=== PATIENT | female | born 1990 | race African-American/Black ===

== ENCOUNTER 2018-11-19 17:45 | Emergency (ER) | payer OTHER ==
[~2018-11-19] VITALS: Ht 144.8 cm; Wt 58.1 kg
--- NOTE | 2018-11-19 18:38 | PHYS DOC ---
Past Medical History Additional Past Medical Histor: ADHD, ANXIETY Past Surgical History: Alcohol Use: None Drug Use: None Adult General Chief Complaint Chief Complaint: CHEST PAIN HPI HPI Patient is a 28 year old -[place] female with history of ADD and schizophrenia who presents with intermittent chest wall pain 24 hours. It is located in the left side described as sharp and rated as mild. It is not associated with nausea vomiting, sweats, fever or cough. Patient denies leg pain swelling. No history of DVT or PE. Patient is not currently on hormone therapy. Previous tubal ligation. Patient started on IM Haldol injections 2 days ago. Denies rash, itching, or shortness of breath. No fevers, chills, sweats or other infectious symptoms. No other acute symptoms or complaints. Additional history obtained from the patient's grandmother.[] Review of Systems Review of Systems Review of symptoms as per history of present illness All other systems were reviewed and found to be within normal limits, except as documented in this note. Allergies Allergies Allergies Coded Allergies Type Severity Reaction Last Updated Verified aspirin Allergy Unknown 11/19/18 Yes Physical Exam Physical Exam Constitutional: Well developed, well nourished, no acute distress, non-toxic appearance. [] HENT: Normocephalic, atraumatic, bilateral external ears normal, oropharynx moist, nose normal. [] Eyes: PERRLA, EOMI, conjunctiva normal, no discharge. [] Neck: Normal range of motion, no tenderness, supple, no stridor. [] Cardiovascular:Heart rate regular rhythm, no murmur [] Lungs & Thorax: Bilateral breath sounds clear to auscultation [] Abdomen: Bowel sounds normal, soft, no tenderness. [] Skin: Warm, dry, no erythema, no rash. [] Back: No tenderness. [] Extremities: No tenderness, negatives Homans sign.. [] Neurologic: Alert and oriented X 3, normal motor function, normal sensory function, no focal deficits noted. [] Psychologic: Affect normal, judgement normal, mood normal. [] Current Patient Data Vital Signs Vital Signs Date Time Temp Pulse Resp B/P (MAP) Pulse Ox O2 Delivery O2 Flow Rate FiO2 11/19/18 18:06 99.7 105 18 126/82 (97) 99 Room Air 99.7 Lab Values Laboratory Tests Test 11/19/18 18:20 White Blood Count 4.8 x10^3/uL (4.0-11.0) Red Blood Count 5.08 x10^6/uL (3.50-5.40) Hemoglobin 15.1 g/dL (12.0-15.5) Hematocrit 45.2 % (36.0-47.0) Mean Corpuscular Volume 89 fL (79-100) Mean Corpuscular Hemoglobin 30 pg (25-35) Mean Corpuscular Hemoglobin Concent 33 g/dL (31-37) Red Cell Distribution Width 13.9 % (11.5-14.5) Platelet Count 242 x10^3/uL (140-400) Neutrophils (%) (Auto) 64 % (31-73) Lymphocytes (%) (Auto) 28 % (24-48) Monocytes (%) (Auto) 7 % (0-9) Eosinophils (%) (Auto) 0 % (0-3) Basophils (%) (Auto) 1 % (0-3) Neutrophils # (Auto) 3.1 x10^3uL (1.8-7.7) Lymphocytes # (Auto) 1.4 x10^3/uL (1.0-4.8) Monocytes # (Auto) 0.3 x10^3/uL (0.0-1.1) Eosinophils # (Auto) 0.0 x10^3/uL (0.0-0.7) Basophils # (Auto) 0.0 x10^3/uL (0.0-0.2) D-Dimer (Maggie) 0.33 ug/mlFEU (0.00-0.50) Sodium Level 140 mmol/L (136-145) Potassium Level 4.1 mmol/L (3.5-5.1) Chloride Level 100 mmol/L (98-107) Carbon Dioxide Level 27 mmol/L (21-32) Anion Gap 13 (6-14) Blood Urea Nitrogen 13 mg/dL (7-20) Creatinine 0.6 mg/dL (0.6-1.0) Estimated GFR (Cockcroft-Gault) 146.2 Glucose Level 149 mg/dL (70-99) H Calcium Level 10.3 mg/dL (8.5-10.1) H Laboratory Tests 11/19/18 18:20 Laboratory Tests 11/19/18 18:20 EKG EKG [EKG: Normal sinus rhythm, no acute ST-T wave changes on ED review] Radiology/Procedures Radiology/Procedures [Chest x-ray: No acute cardiopulmonary disease per radiology report.] Course & Med Decision Making Course & Med Decision Making Pertinent Labs and Imaging studies reviewed. (See chart for details) [Producible chest wall pain with normal vital signs, EKG, lab, imaging studies unremarkable. Symptoms most consistent with pleurisy. Recommend supportive care with PCP follow-up. Return precautions reviewed. Patient and family members verbalizes understanding agreement with discharge instructions prior to departure.] Dragon Disclaimer Dragon Disclaimer This electronic medical record was generated, in whole or in part, using a voice recognition dictation system. Departure Departure Impression: Primary Impression: Chest wall pain Additional Impression: Pleurisy Disposition: HOME, SELF-CARE Condition: GOOD Patient Instructions: Chest Wall Pain, [id number] Additional Instructions: You were evaluated in the emergency department for chest wall pain. EKG lab and imaging studies were performed and are nondiagnostic. Your symptoms are most consistent with pleurisy, inflammation of the lining lungs. Please take his 100 mg of ibuprofen 3 times daily and Tylenol as needed for additional relief. Follow-up with your PCP early next week for reevaluation if symptoms persist. Return to the ED if new or worsening symptoms. Scripts Ibuprofen (Ibuprofen) 600 Mg Tablet 600 MG PO Q8HRS, #30 TAB Prov: SAL WILCOX DO 11/19/18 Problem Qualifiers SAL WILCOX DO Nov 19, 2018 18:38
[2018-11-19 19:12] LABS: CALCIUM 10.3 mg/dL (8.5-10.1); CREATININE 0.6 mg/dL (0.6-1.0); GFR 146.2; POTASSIUM 4.1 mmol/L (3.5-5.1)
[2018-11-19 19:18] LABS: BASO % 1 % (0-3); EOS % 0 % (0-3); HEMATOCRIT 45.2 % (36.0-47.0); HEMOGLOBIN 15.1 g/dL (12.0-15.5); LYMPH # 1.4 x10^3/uL (1.0-4.8); LYMPH % 28 % (24-48); MEAN CORPUSCULAR HEMOGLOBIN 30 pg (25-35); MEAN CORPUSCULAR HGB CONC 33 g/dL (31-37); MEAN CORPUSCULAR VOLUME 89 fL (79-100); MONO # 0.3 x10^3/uL (0.0-1.1); MONO % 7 % (0-9); NEUT # 3.1 x10^3uL (1.8-7.7); NEUT % 64 % (31-73); PLATELET COUNT 242 x10^3/uL (140-400); RED BLOOD COUNT 5.08 x10^6/uL (3.50-5.40); RED CELL DISTRIBUTION WIDTH 13.9 % (11.5-14.5); WHITE BLOOD COUNT 4.8 x10^3/uL (4.0-11.0)
--- NOTE | 2018-11-19 19:24 | RAD ---
PROCEDURE: CHEST AP ONLY CLINICAL INDICATION: Chest pain COMPARISON: None FINDINGS: No pneumothorax identified. Cardiac and mediastinal contours unremarkable. No pulmonary consolidation or acute airspace disease. No acute osseous abnormalities identified. IMPRESSION: No pulmonary consolidation or acute airspace disease. Electronically signed by: Germain Andersen DO (11/19/2018 7:21 PM) [facility]
[2018-11-19] MEDS ORDERED: IBUP-985 PO (19:34)
[2018-11-19 19:52] VITALS: BP 113/76
--- NOTE | 2018-11-20 11:50 | EKG ---
[facility] [address] [place] [address] Test Date: 2018-11-19 Test Time: 17:58:41 Pat Name: KATERYNA MAYNARD Department: Room: Gender: F [employer]: : 1990 Requested By: SAL WILCOX Order Number: [id number] Reading MD: Esau Arias Measurements Intervals [place] Rate: 100 P: 63 MN: 150 QRS: -26 QRSD: 80 T: 12 QT: 348 QTc: 452 Interpretive Statements SINUS RHYTHM LEFT ATRIAL ABNORMALITY LEFTWARD AXIS INCOMPLETE RIGHT BUNDLE BRANCH BLOCK ABNORMAL ECG RI6.01 No previous ECG available for comparison Electronically Signed On 11-29-2018 10:37:56 [employer]OLER DELIVERER by Esau Arias
== END 2018-11-19 20:01 | disposition home or self-care (01) ==
LOC: ER 17:45
DX: R09.1 Pleurisy (principal); R07.89 Other chest pain; F41.9 Anxiety disorder, unspecified; F90.9 Attention-deficit hyperactivity disorder, unspecified type; F20.9 Schizophrenia, unspecified; Z88.6 Allergy status to analgesic agent
CPT/HCPCS: 36415; 71045; 80048; 85025; 85379; 93005; 99284

== ENCOUNTER 2019-10-02 19:41 | Emergency (ER) | payer OTHER ==
[~2019-10-02] VITALS: Ht 157.5 cm; Wt 58.1 kg
[~2019-10-02 19:41] MED LIST: IBUP-985 PO
[2019-10-02 20:02] LABS: BILIRUBIN,URINE NEGATIVE (NEG); CLARITY,URINE CLEAR; COLOR,URINE YELLOW; NITRITE,URINE NEGATIVE (NEG); PH,URINE 5.5; PROTEIN,URINE NEGATIVE (NEG-TRACE); UROBILINOGEN,URINE 0.2 mg/dL (0.2 mg/dL)
[2019-10-02 20:06] LABS: U PREG PATIENT NEGATIVE (NEG)
[2019-10-02 20:09] LABS: SQUAMOUS EPITHELIAL CELL,UR MOD /LPF
[2019-10-02 20:10] LABS: BACTERIA,URINE FEW /HPF (0-FEW); RBC,URINE 0 /HPF (0-2)
[2019-10-02] MEDS ORDERED: ONDANSETRON PF 4 MG/2 ML VIAL. IV ONE (20:45)
[2019-10-02] MEDS ORDERED: IV NORMAL SALINE 1000ML BAG 1,000 ML IV ONE (20:45)
--- NOTE | 2019-10-02 21:33 | RAD ---
Examination: Right Lower Extremity Venous Doppler Ultrasound History: Right leg swelling Comparison: None Procedure: Bal scale, color flow 2D and spectal waveform analysis images are obtained with and without compression in the area of the common femoral vein, superficial femoral vein - femoral vein junction, main femoral vein (superficial femoral vein) and popliteal vein. Veins of the proximal calf are also imaged. Findings: There is normal duplex flow, color flow and compressibility of all visualized vein segments. No evidence of deep venous thrombus is present. Impression: No evidence of DVT in the right lower extremity venous system. Electronically signed by: Trav Mcgraw MD (10/02/2019 9:30 PM) [facility]
[2019-10-02 21:36] LABS: BASO % 1 % (0-3); EOS % 1 % (0-3); HEMATOCRIT 45.5 % (36.0-47.0); HEMOGLOBIN 15.2 g/dL (12.0-15.5); LYMPH # 1.5 x10^3/uL (1.0-4.8); LYMPH % 26 % (24-48); MEAN CORPUSCULAR HEMOGLOBIN 29 pg (25-35); MEAN CORPUSCULAR HGB CONC 33 g/dL (31-37); MEAN CORPUSCULAR VOLUME 87 fL (79-100); MONO # 0.3 x10^3/uL (0.0-1.1); MONO % 6 % (0-9); NEUT # 3.9 x10^3/uL (1.8-7.7); NEUT % 67 % (31-73); PLATELET COUNT 220 x10^3/uL (140-400); RED BLOOD COUNT 5.22 x10^6/uL (3.50-5.40); RED CELL DISTRIBUTION WIDTH 13.9 % (11.5-14.5); WHITE BLOOD COUNT 5.7 x10^3/uL (4.0-11.0)
[2019-10-02 21:44] LABS: CALCIUM 9.7 mg/dL (8.5-10.1); CREATININE 0.7 mg/dL (0.6-1.0); GFR 121.5; POTASSIUM 4.6 mmol/L (3.5-5.1)
[2019-10-02 21:50] LABS: ALBUMIN 4.4 g/dL (3.4-5.0); ALBUMIN/GLOBULIN RATIO 1.1 (1.0-1.7); TOTAL BILIRUBIN 0.8 mg/dL (0.2-1.0); TOTAL PROTEIN 8.3 g/dL (6.4-8.2)
--- NOTE | 2019-10-02 22:12 | PHYS DOC ---
Past Medical History Past Medical History: Other Additional Past Medical Histor: ADHD, ANXIETY (LOGAN GILLIAM APRN) Past Surgical History: (LOGAN GILLIAM APRN) Alcohol Use: None Drug Use: None (LOGAN GILLIAM APRN) Attending Signature I have participated in the care of this patient and I have reviewed and agree wi th all pertinent clinical information above including history, exam, and recommendations. (ANDERS MONTALVO MD) Adult General Chief Complaint Chief Complaint: NAUSEA/VOMITING/DIARRHA HPI HPI Patient is a 29 year old female who presents to the ED today to be evaluated with concerns for diabetes. Patient reports she was seen at [facility] a couple days ago and was diagnosed with diabetes type 2 with glucose of 200. She reports she has no glucometer and is worried her glucose could be high. She is also re porting swelling to the right lower extremity and is requesting a venous Doppler of the right lower extremity to rule out any DVT. She reports she is a smoker (LOGAN GILLIAM APRN) Review of Systems Review of Systems Constitutional: Denies fever or chills [] Eyes: Denies change in visual acuity, redness, or eye pain [] HENT: Denies nasal congestion or sore throat [] Respiratory: Denies cough or shortness of breath [] Cardiovascular: No additional information not addressed in HPI [] GI: Denies abdominal pain, nausea, vomiting, bloody stools or diarrhea [] : Denies dysuria or hematuria [] Musculoskeletal: Reports right lower extremity swelling Integument: Denies rash or skin lesions [] Neurologic: Denies headache, focal weakness or sensory changes [] Endocrine-concern for DM All other systems were reviewed and found to be within normal limits, except as documented in this note. (LOGAN GILLIAM APRN) Current Medications Current Medications Current Medications Medications (Trade) Dose Ordered Sig/[place] Start Time Stop Time Status Last Admin Dose Admin Ondansetron HCl (Zofran) 4 mg 1X ONCE 10/02/19 20:45 10/02/19 20:46 DC 10/02/19 21:34 4 MG Sodium Chloride 1,000 ml @ 1,000 mls/hr 1X ONCE 10/02/19 20:45 10/02/19 21:44 DC 10/02/19 20:45 1,000 MLS/HR (ANDERS MONTALVO MD) Allergies Allergies Allergies Coded Allergies Type Severity Reaction Last Updated Verified aspirin Allergy Intermediate 10/02/19 Yes (ANDERS MONTALVO MD) Physical Exam Physical Exam Constitutional: Well developed, well nourished, no acute distress, non-toxic appearance. [] HENT: Normocephalic, atraumatic, bilateral external ears normal, oropharynx moist, no oral exudates, nose normal. [] Eyes: PERRLA, EOMI, conjunctiva normal, no discharge. [] Neck: Normal range of motion, no tenderness, supple, no stridor. [] Cardiovascular:Heart rate regular rhythm, no murmur [] Lungs & Thorax: Bilateral breath sounds clear to auscultation [] Abdomen: Bowel sounds normal, soft, no tenderness, no masses, no pulsatile masses. [] Skin: Warm, dry, no erythema, no rash. [] Back: No tenderness, no CVA tenderness. [] Extremities: No tenderness, no cyanosis, no clubbing, ROM intact, no edema. Negative Homans sign to bilateral lower extremities Neurologic: Alert and oriented X 3, normal motor function, normal sensory function, no focal deficits noted. [] Psychologic: Appears developmentally delayed (MUTUNGA,LOGAN ELEMENTARY SECRETARY) Current Patient Data Vital Signs Vital Signs Date Time Temp Pulse Resp B/P (MAP) Pulse Ox O2 Delivery O2 Flow Rate FiO2 10/02/19 22:26 93 113/71 (85) 10/02/19 20:25 98.8 16 98 Room Air 98.8 (ANDERS MONTALVO MD) Lab Values Laboratory Tests Test 10/02/19 19:45 10/02/19 20:30 10/02/19 21:20 Urine Collection Type Unknown Urine Color Yellow Urine Clarity Clear Urine pH 5.5 Urine Specific [place] 1.025 Urine Protein Negative mg/dL (NEG-TRACE) Urine Glucose (UA) Negative mg/dL (NEG) Urine Ketones (Stick) 40 mg/dL (NEG) Urine Blood Negative (NEG) Urine Nitrite Negative (NEG) Urine Bilirubin Negative (NEG) Urine Urobilinogen Dipstick 0.2 mg/dL (0.2 mg/dL) Urine Leukocyte Esterase Negative (NEG) Urine RBC 0 /HPF (0-2) Urine WBC 1-4 /HPF (0-4) Urine Squamous Epithelial Cells Mod /LPF Urine Bacteria Few /HPF (0-FEW) Urine Mucus Mod /LPF Urine Test Negative (NEG) Glucose (Fingerstick) 82 mg/dL (70-99) White Blood Count 5.7 x10^3/uL (4.0-11.0) Red Blood Count 5.22 x10^6/uL (3.50-5.40) Hemoglobin 15.2 g/dL (12.0-15.5) Hematocrit 45.5 % (36.0-47.0) Mean Corpuscular Volume 87 fL (79-100) Mean Corpuscular Hemoglobin 29 pg (25-35) Mean Corpuscular Hemoglobin Concent 33 g/dL (31-37) Red Cell Distribution Width 13.9 % (11.5-14.5) Platelet Count 220 x10^3/uL (140-400) Neutrophils (%) (Auto) 67 % (31-73) Lymphocytes (%) (Auto) 26 % (24-48) Monocytes (%) (Auto) 6 % (0-9) Eosinophils (%) (Auto) 1 % (0-3) Basophils (%) (Auto) 1 % (0-3) Neutrophils # (Auto) 3.9 x10^3/uL (1.8-7.7) Lymphocytes # (Auto) 1.5 x10^3/uL (1.0-4.8) Monocytes # (Auto) 0.3 x10^3/uL (0.0-1.1) Eosinophils # (Auto) 0.0 x10^3/uL (0.0-0.7) Basophils # (Auto) 0.0 x10^3/uL (0.0-0.2) Sodium Level 139 mmol/L (136-145) Potassium Level 4.6 mmol/L (3.5-5.1) Chloride Level 101 mmol/L (98-107) Carbon Dioxide Level 26 mmol/L (21-32) Anion Gap 12 (6-14) Blood Urea Nitrogen 17 mg/dL (7-20) Creatinine 0.7 mg/dL (0.6-1.0) Estimated GFR (Cockcroft-Gault) 121.5 BUN/Creatinine Ratio 24 (6-20) H Glucose Level 80 mg/dL (70-99) Calcium Level 9.7 mg/dL (8.5-10.1) Total Bilirubin 0.8 mg/dL (0.2-1.0) Aspartate Amino Transferase (AST) 21 U/L (15-37) Alanine Aminotransferase (ALT) 16 U/L (14-59) Alkaline Phosphatase 77 U/L (46-116) Total Protein 8.3 g/dL (6.4-8.2) H Albumin 4.4 g/dL (3.4-5.0) Albumin/Globulin Ratio 1.1 (1.0-1.7) Laboratory Tests 10/02/19 21:20 Laboratory Tests 10/02/19 21:20 (ANDERS MONTALVO MD) EKG EKG [] (LOGAN GILLIAM APRN) Radiology/Procedures Radiology/Procedures [] (LOGAN GILLIAM APRN) Course & Med Decision Making Course & Med Decision Making Pertinent Labs and Imaging studies reviewed. (See chart for details) This is a 29-year-old female patient presenting to the ED today concerned about her new diagnosis of diabetes type 2. She reports she was not put on any medicines. She was diagnosed with diabetes a couple days ago. Her glucose in the ED is 80. She has no anion gap. I even wonder if truly she was diagnosed with d iabetes. She requested a venous Doppler of the right lower extremity concerned she could have DVT with her history of smoking. Venous Doppler is negative. Patient was discharged to home. Encouraged to follow-up with a primary care doctor, she states she has an appointment on the . (LOGAN GILLIAM APRN) Dragon Disclaimer Dragon Disclaimer This electronic medical record was generated, in whole or in part, using a voice recognition dictation system. (LOGAN GILLIAM APRN) Departure Departure Impression: Primary Impression: Smoking addiction Additional Impression: Evaluation by medical service required Disposition: HOME, SELF-CARE Condition: STABLE Referrals: TRAVON RIVAS APRN (PCP) follow up with your doctor as scheduled Patient Instructions: Diet - 2000 Calorie Diabetic, Smoking Cessation, Tips For Success Additional Instructions: Your blood glucose in the emergency room was 80. This is a normal range. Please follow-up with your own doctor as scheduled and they can work you up for diabetes. Problem Qualifiers LOGAN GILLIAM APRN Oct 02, 2019 22:12 ANDERS MONTALVO MD Oct 04, 2019 07:48
[2019-10-02 22:26] VITALS: BP 113/71
== END 2019-10-02 22:45 | disposition home or self-care (01) ==
LOC: ER 19:41
DX: E11.9 Type 2 diabetes mellitus without complications (principal); F17.200 Nicotine dependence, unspecified, uncomplicated; R22.41 Localized swelling, mass and lump, right lower limb; F90.9 Attention-deficit hyperactivity disorder, unspecified type; F41.9 Anxiety disorder, unspecified; Z88.6 Allergy status to analgesic agent
CPT/HCPCS: 36415; 80053; 81001; 81025; 82962; 85025; 93971; 96374; 99285; J2405; J7030

== ENCOUNTER 2020-03-25 18:22 | Emergency (ER) | payer OTHER ==
[~2020-03-25] VITALS: Ht 149.9 cm; Wt 70.9 kg
[2020-03-25 18:56] VITALS: BP 140/84
--- NOTE | 2020-03-25 19:10 | PHYS DOC ---
Past Medical History Past Medical History: Other Additional Past Medical Histor: ADHD, ANXIETY Past Surgical History: Smoking Status: Current Every Day Smoker Alcohol Use: Occasionally Drug Use: None Social History Narrative: DAILY MARIJUANA USE General Adult EDM: Chief Complaint: HEADACHE HPI: HPI: Patient is a 30 year old female patient complains of headache for the last 5 days. States that she frequently has headaches, says feels similar to her previous. She has not taken any medications for this. She says she used to take Tylenol in the past, but it stopped working. States she has never followed up with her primary care about this. Denies nausea. Denies vomiting. Denies fever. Denies cough. Denies exposure to other ill persons. Denies visual c hanges. States no recent trauma or falls Review of Systems: Review of Systems: Constitutional: Denies fever or chills. [] Eyes: Denies change in visual acuity. [] HENT: Denies nasal congestion or sore throat. [] Respiratory: Denies cough or shortness of breath. [] Cardiovascular: Denies chest pain or edema. [] GI: Denies abdominal pain, nausea, vomiting, bloody stools or diarrhea. [] : Denies dysuria. [] Musculoskeletal: Denies back pain or joint pain. [] Integument: Denies rash. [] Neurologic: Denies focal weakness or sensory changes. Reports headache similar to her normal [] Endocrine: Denies polyuria or polydipsia. [] Lymphatic: Denies swollen glands. [] Psychiatric: Denies depression or anxiety. [] Heart Score: Risk Factors: Risk Factors: DM, Current or recent (<one month) smoker, HTN, HLP, family history of CAD, obesity. Risk Scores: Score 0 - 3: 2.5% MACE over next 6 weeks - Discharge Home Score 4 - 6: 20.3% MACE over next 6 weeks - Admit for Clinical Observation Score 7 - 10: 72.7% MACE over next 6 weeks - Early Invasive Strategies Allergies: Allergies: Allergies Coded Allergies Type Severity Reaction Last Updated Verified aspirin Allergy Intermediate 10/02/19 Yes Physical Exam: PE: Constitutional: Well developed, well nourished, no acute distress, non-toxic appearance. [] HENT: Normocephalic, atraumatic, bilateral external ears normal, oropharynx moist, no oral exudates, nose normal. [] Eyes: PERRLA, EOMI, conjunctiva normal, no discharge. No apparent discomfort on visual exam [] Neck: Normal range of motion, no tenderness, supple, no stridor. [] Cardiovascular:Heart rate regular rhythm, no murmur [] Lungs & Thorax: Bilateral breath sounds clear to auscultation [] Skin: Warm, dry, no erythema, no rash. [] Back: No tenderness, no CVA tenderness. [] Neurologic: Alert and oriented X 3, normal motor function, normal sensory function, no focal deficits noted. [] Psychologic: Affect normal, judgement normal, mood normal. [] Current Patient Data: Vital Signs: Vital Signs Date Time Temp Pulse Resp B/P (MAP) Pulse Ox O2 Delivery O2 Flow Rate FiO2 03/25/20 18:56 98.4 105 16 140/84 (102) 100 Room Air 98.4 EKG: EKG: [] Radiology/Procedures: Radiology/Procedures: [] Course & Med Decision Making: Course & Med Decision Making Pertinent Labs and Imaging studies reviewed. (See chart for details) [] Discussed findings, with this being similar to her normal events, no acute changes are no acute trauma, patient agreeable to injection of medication for discomfort. Discussed importance of follow-up, patient in agreement [place] Disclaimer: [place] Disclaimer: This electronic medical record was generated, in whole or in part, using a voice recognition dictation system. Departure Departure Impression: Primary Impression: Headache Qualified Codes: G44.219 - Episodic tension-type headache, not intractable Disposition: 01 HOME, SELF-CARE Condition: STABLE Referrals: TRAVON RIVAS APRN (PCP) Patient Instructions: Tension Headache Additional Instructions: Continue to rest, drink plenty fluids. Follow-up with your primary care provider. Justicifation of Admission Dx: Justifications for Admission: Justification of Admission Dx: N/A WILLIAM JOHNSON APRN Mar 25, 2020 19:10
[2020-03-25] MEDS ORDERED: KETOROLAC 30 MG/ML VIAL. IM ONE (19:15)
[2020-03-25] MEDS ORDERED: diphenhydrAMINE 50 MG/ML VIAL IM ONE (19:15)
== END 2020-03-25 19:34 | disposition home or self-care (01) ==
LOC: ER 18:22
DX: G44.219 Episodic tension-type headache, not intractable (principal); F41.9 Anxiety disorder, unspecified; F90.9 Attention-deficit hyperactivity disorder, unspecified type; F17.200 Nicotine dependence, unspecified, uncomplicated; F12.90 Cannabis use, unspecified, uncomplicated; Z98.890 Other specified postprocedural states; Z88.6 Allergy status to analgesic agent
CPT/HCPCS: 96372; 99284; J1200; J1885